=== PATIENT | male | born 1960 | race Caucasian/White ===

== ENCOUNTER 2019-01-04 08:00 | Outpatient (CLI) | payer OTHER | END 2019-01-04 23:59 | disposition home or self-care (01) | LOC: LAB.R 08:00 | PROVIDERS: ATTEND Emergency Medicine | DX: R19.7 Diarrhea, unspecified (principal) | CPT/HCPCS: 81599; 87045; 87046; 87177; 87209; 87329; 87493 ==

== ENCOUNTER 2019-01-04 12:24 | Emergency (ER) | payer OTHER ==
[2019-01-04 13:44] LABS: BASOPHILS % (AUTO) 0.3 %; EOSINOPHILS % (AUTO) 0.2 %; HGB - HEMOGLOBIN 16.3 g/dL (14.0-18.0); LYMPHOCYTES # (AUTO) 1.3 10^3/uL (1.5-3.5); LYMPHOCYTES % (AUTO) 14.6 %; MEAN CORPUSCULAR HEMOGLOBIN 30.4 pg (27.0-31.0); MEAN CORPUSCULAR HGB CONC 33.4 g/dL (32.0-36.0); MEAN CORPUSCULAR VOLUME 90.9 fL (80.0-94.0); MEAN PLATELET VOLUME 9.7 fL (7.4-11.4); MONOCYTES # (AUTO) 0.4 10^3/uL (0.0-1.0); MONOCYTES % (AUTO) 4.9 %; NEUTROPHILS # (AUTO) 7.2 10^3/uL (1.5-6.6); NEUTROPHILS % (AUTO) 79.2 %; PLT - PLATELET COUNT 194 10^3/uL (130-450); RED BLOOD COUNT 5.37 10^6/uL (4.70-6.10); WHITE BLOOD COUNT 9.1 x10^3/uL (4.8-10.8)
[2019-01-04 14:02] LABS: ALBUMIN 4.9 g/dL (3.2-5.5); ALBUMIN/GLOBULIN RATIO 1.8 (1.0-2.2); BILIRUBIN,TOTAL 0.6 mg/dL (0.2-1.0); CALCIUM 10.5 mg/dL (8.5-10.3); TOTAL PROTEIN 7.6 g/dL (6.7-8.2)
--- NOTE | 2019-01-04 15:01 | ED Physician Documentation ---
PD HPI ABD PAIN - Stated complaint Stated Complaint: MALE - Chief complaint Chief Complaint: Abd Pain - History obtained from History obtained from: Patient - History of Present Illness Timing - onset: Other (He got back from a trip to [place] about 5 or 6 days ago. Last night he suddenly developed bandlike mid abdominal pain across both sides as well as profuse diarrhea and sweats. That kind of got better and appeared away but then had one bloody bowel movement with a little bit of mucus in it. No sick contacts. No recent antibiotic use. No camping. No prior colonoscopy. He is scheduled for one in February.) Review of Systems Ten Systems: 10 systems reviewed and negative Constitutional: reports: Sweats. denies: Fever, Chills, Myalgias Cardiac: denies: Chest pain / pressure, Palpitations Respiratory: denies: Dyspnea, Cough PD PAST MEDICAL HISTORY - Past Medical History Past Medical History: No - Past Surgical History Past Surgical History: No - Present Medications Home Medications: Ambulatory Orders Medication Instructions Recorded Confirmed Azithromycin [Zithromax] 2 tab PO DAILY #6 tablet 01/04/19 - Allergies Allergies/Adverse Reactions: Allergies Allergy/AdvReac Type Severity Reaction Status Date / Time Penicillins Allergy Unknown Verified 01/04/19 12:35 Sulfa (Sulfonamide Allergy Unknown Verified 01/04/19 12:35 Antibiotics) - Social History Smoking Status: Current every day smoker PD ED PE NORMAL - Vitals Vital signs reviewed: Yes - General General: Alert and oriented X 3, No acute distress - HEENT HEENT: PERRL, EOMI - Neck Neck: Supple, no meningeal sign, No bony TTP - Cardiac Cardiac: RRR, No murmur - Respiratory Respiratory: No respiratory distress, Clear bilaterally - Abdomen Abdomen: Normal bowel sounds, Soft, Other (Mild left lower quadrant tenderness without surgical signs) - Back Back: No CVA TTP, No spinal TTP - Derm Derm: Normal color, Warm and dry - Extremities Extremities: No edema, No calf tenderness / cord - Neuro Neuro: Alert and oriented X 3, Normal speech Results - Vitals Vitals: Vital Signs - 24 hr 01/04/19 01/04/19 01/04/19 12:35 14:41 15:09 Temperature 36.6 C 36.8 C 37.1 C Heart Rate 93 87 87 Respiratory 18 18 16 Rate Blood Pressure 138/84 H 124/71 141/88 H O2 Saturation 99 98 97 01/04/19 01/04/19 16:10 16:26 Temperature 36.9 C 37 C Heart Rate 96 91 Respiratory 16 16 Rate Blood Pressure 127/80 112/79 O2 Saturation 95 96 Oxygen O2 Source Room air - Labs Labs: Laboratory Tests 01/04/19 01/04/19 01/04/19 13:13 13:13 15:21 WBC 9.1 RBC 5.37 Hgb 16.3 Hct 48.8 MCV 90.9 MCH 30.4 MCHC 33.4 RDW 12.0 Plt Count 194 MPV 9.7 Neut # (Auto) 7.2 H Lymph # (Auto) 1.3 L [place] # (Auto) 0.4 Eos # (Auto) 0.0 Baso # (Auto) 0.0 Absolute Nucleated RBC 0.00 Nucleated RBC % 0.0 Sodium 135 Potassium 4.1 Chloride 98 L Carbon Dioxide 28 Anion Gap 9.0 BUN 16 Creatinine 1.0 Estimated GFR (MDRD) 76 L Glucose 135 H Calcium 10.5 H Total Bilirubin 0.6 AST 20 ALT 42 Alkaline Phosphatase 68 Total Protein 7.6 Albumin 4.9 Globulin 2.7 Albumin/Globulin Ratio 1.8 Lipase 28 Urine Color YELLOW Urine Clarity CLEAR Urine pH 6.5 Ur Specific [place] 1.020 Urine Protein NEGATIVE Urine Glucose (UA) NEGATIVE Urine Ketones NEGATIVE Urine Occult Blood TRACE-LYSE Urine Nitrite NEGATIVE Urine Bilirubin NEGATIVE Urine Urobilinogen 0.2 (NORMAL) Ur Leukocyte Esterase NEGATIVE Ur Microscopic Review NOT INDICATED Urine Culture Comments NOT INDICATED PD MEDICAL DECISION MAKING - ED course ED course: This is a 58-year-old gentleman with signs and symptoms consistent with colitis. He is hemodynamically stable with fairly unremarkable blood work and normal CA T scan. He was unable to provide a stool sample here, was given collection materials to collect a stool sample at home and delivered back to the hospital as well as a lab requisition for same with orders for stool culture, ova and parasite, Giardia, and C. difficile. We will treat him with Zithromax in the meantime for presumed bacterial colitis with recent trip to [place]. Departure - Departure Disposition: 01 Home, Self Care Clinical Impression: Colitis Diarrhea Qualifiers: Diarrhea type: presumed infectious Qualified Code(s): R19.7 - Diarrhea, unspecified Condition: Good Record reviewed to determine appropriate education?: Yes Instructions: ED Diarrhea Bacterial Prescriptions: Azithromycin [Zithromax] 2 tab PO DAILY #6 tablet Comments: Return if not better in the next couple of days, anytime for new or worsening symptoms. Follow-up for the colonoscopy as scheduled in February. Discharge Date/Time: 01/04/19 16:36
[2019-01-04] MEDS ORDERED: IOVERSOL 320 100 ML VIAL IVP ONE ×2 (15:11→19:20)
[2019-01-04 15:41] LABS: BILIRUBIN,URINE NEGATIVE (NEGATIVE); GLUCOSE, URINE (UA) NEGATIVE (NEGATIVE); KETONES,URINE (UA) NEGATIVE (NEGATIVE); LEUKOCYTE ESTERASE, URINE NEGATIVE (NEGATIVE); NITRITE,URINE NEGATIVE (NEGATIVE); OCCULT BLOOD,URINE TRACE-LYSE (NEGATIVE); PH,URINE 6.5 PH (5.0-7.5); PROTEIN,URINE NEGATIVE (NEGATIVE); UROBILINOGEN,URINE 0.2 (NORMAL) E.U./dL (NORMAL)
[2019-01-04 15:43] LABS: CLARITY,URINE CLEAR (CLEAR)
--- NOTE | 2019-01-04 16:01 | CT Report ---
Reason: IV only, abd pain colitis Procedure Date: 01/04/2019 Accession Number: [id number] / [id number] Procedure: CT - Abdomen/Pelvis W CPT Code: Final Report FULL RESULT: EXAM: CT ABDOMEN AND PELVIS EXAM DATE: 01/04/2019 03:26 PM. CLINICAL HISTORY: IV only, abd pain colitis. COMPARISONS: None. TECHNIQUE: Routine helical CT imaging was performed through the abdomen and pelvis. IV contrast: OPTI 320 90ML. Enteric contrast: No. Reconstructions: Coronal and sagittal. In accordance with CT protocol optimization, one or more of the following dose reduction techniques were utilized for this exam: automated exposure control, adjustment of mA and/or KV based on patient size, or use of iterative reconstructive technique. FINDINGS: Lung Bases: Unremarkable. Liver: No lobular contour changes or masses. Gallbladder/Bile Ducts: Unremarkable. Spleen: Normal. Pancreas: Normal. Adrenal Glands: Normal. Kidneys: No stones, masses or hydronephrosis. Peritoneal Cavity/Bowel: Normal. No free fluid, free air or adenopathy. No masses or acute inflammatory process. The appendix is well visualized and normal. Pelvic Organs: Normal. The bladder and visualized pelvic organs are within normal limits. Vasculature: No aneurysms or other significant abnormality. Bones: No significant abnormality. Other: No hernia seen. IMPRESSION: Negative abdomen and pelvis CT. RADIA
[2019-01-04 16:28] VITALS: BP 112/79
== END 2019-01-04 16:36 | disposition home or self-care (01) ==
LOC: ED 12:24
DX: K52.9 Noninfective gastroenteritis and colitis, unspecified (principal); F17.200 Nicotine dependence, unspecified, uncomplicated
CPT/HCPCS: 36415; 74177; 80053; 81003; 83690; 85025; 99284; Q9967; 81001; 87015; 87086; 87272; 87329

== ENCOUNTER 2019-10-19 16:47 | Outpatient (CLI) | payer OTHER ==
--- NOTE | 2019-10-19 17:12 | XRAY Report ---
PROCEDURE: Knee 3 View RT INDICATIONS: INTERNAL DERANGEMENT OF RT KNEEE TECHNIQUE: 3 views of the right knee(s) were acquired. COMPARISON: None. FINDINGS: Bones: No fractures or dislocations. No suspicious bony lesions. Soft tissues: Moderate suprapatellar joint effusion is seen. No suspicious soft tissue calcifications . IMPRESSION: No right knee fracture or dislocation. Moderate joint effusion. Consider MRI of right kn ee for further evaluation of internal derangement if clinically indicated. Reviewed by: Antonio Castro MD on 10/19/2019 5:11 PM PDT Approved by: Antonio Castro MD on 10/19/2019 5:11 PM PDT Station ID: [id number]
== END 2019-10-19 16:48 | disposition home or self-care (01) ==
LOC: DI 16:47
PROVIDERS: ATTEND Family Medicine
DX: M25.461 Effusion, right knee (principal)

== ENCOUNTER 2020-02-02 08:00 | Outpatient (CLI) | payer OTHER | END 2020-02-02 08:01 | disposition home or self-care (01) | LOC: LAB.N 08:00 | PROVIDERS: ATTEND Physician Assistant Medical | DX: R07.0 Pain in throat (principal); Z20.828 Contact with and (suspected) exposure to other viral communicable diseases ==

== ENCOUNTER 2020-03-08 08:00 | Outpatient (CLI) | payer OTHER ==
[2020-03-08 11:52] LABS: BASOPHILS % (AUTO) 0.6 %; EOSINOPHILS % (AUTO) 0.6 %; HGB - HEMOGLOBIN 16.2 g/dL (14.0-18.0); LYMPHOCYTES # (AUTO) 2.6 10^3/uL (1.5-3.5); LYMPHOCYTES % (AUTO) 41.4 %; MEAN CORPUSCULAR HEMOGLOBIN 31.5 pg (27.0-31.0); MEAN CORPUSCULAR HGB CONC 33.9 g/dL (32.0-36.0); MEAN PLATELET VOLUME 10.3 fL (7.4-11.4); MONOCYTES # (AUTO) 0.4 10^3/uL (0.0-1.0); MONOCYTES % (AUTO) 6.1 %; NEUTROPHILS # (AUTO) 3.2 10^3/uL (1.5-6.6); NEUTROPHILS % (AUTO) 50.8 %; PLT - PLATELET COUNT 204 10^3/uL (130-450); RED BLOOD COUNT 5.14 10^6/uL (4.70-6.10); RED CELL DISTRIBUTION WIDTH 11.6 % (12.0-15.0); WHITE BLOOD COUNT 6.4 x10^3/uL (4.8-10.8)
[2020-03-08 12:16] LABS: ALBUMIN 4.6 g/dL (3.2-5.5); ALKALINE PHOSPHATASE 63 IU/L (42-121); ALT ALANINE AMINOTRANSFERASE 27 IU/L (10-60); AST ASPARTATE AMINOTRANSFERASE 20 IU/L (10-42); BILIRUBIN,TOTAL 0.5 mg/dL (0.2-1.0); BUN - BLOOD UREA NITROGEN 13 mg/dL (6-20); CALCIUM 10.7 mg/dL (8.5-10.3); CARBON DIOXIDE - CO2 29 mmol/L (21-32); CHLORIDE 99 mmol/L (101-111); CHOL/HDL RATIO 4.5 (<5.0); CHOLESTEROL 215 mg/dL; CREATININE 0.8 mg/dL (0.6-1.2); GLUCOSE 107 mg/dL (70-100); HDL CHOLESTEROL 48 mg/dL; LDL CHOLESTEROL,CALCULATED 145 mg/dL; TOTAL PROTEIN 6.9 g/dL (6.7-8.2); VLDL CHOLESTEROL 22 mg/dL
== END 2020-03-08 23:59 | disposition home or self-care (01) ==
LOC: LAB.WCP 08:00
PROVIDERS: ATTEND Family Medicine
DX: E78.00 Pure hypercholesterolemia, unspecified (principal); M15.9 Polyosteoarthritis, unspecified; G43.109 Migraine with aura, not intractable, without status migrainosus; Z12.5 Encounter for screening for malignant neoplasm of prostate
CPT/HCPCS: 36415; 80053; 80061; 83721; 84153; 84443; 85025

== ENCOUNTER 2020-04-18 10:00 | Day surgery (SDC) | payer OTHER ==
[2020-04-18] MEDS ORDERED: LACTATED RINGERS 1,000 ML IV ONE ×2 (10:21→12:44)
[2020-04-18] MEDS ORDERED: MIDAZOLAM 2 MG/2 ML VIAL ONE ×2 (12:23→12:26)
[2020-04-18] MEDS ORDERED: fentaNYL 250 MCG/5 ML VIAL ONE (12:23)
[2020-04-18 13:16] VITALS: BP 96/71
== END 2020-04-18 10:01 | disposition home or self-care (01) ==
LOC: SDS 10:00
PROVIDERS: ATTEND Surgery
DX: Z12.11 Encounter for screening for malignant neoplasm of colon (principal); K64.8 Other hemorrhoids; F17.210 Nicotine dependence, cigarettes, uncomplicated
CPT/HCPCS: 45378; J3010; J7120

== ENCOUNTER 2020-08-17 20:29 | Emergency (ER) | payer OTHER ==
[2020-08-17] MEDS ORDERED: SUMAtriptan 6 MG/0.5 ML VIAL SUBQ STA (21:14)
--- NOTE | 2020-08-17 21:15 | ED Physician Documentation ---
PD HPI OPHTHO - Stated complaint Stated Complaint: LT EAR PX - Chief complaint Chief Complaint: Heent - History obtained from History obtained from: Patient - Additional information Additional information: 59-year-old gentleman, generally very healthy. Got back from [place] 3 days ago. He did get water in his ear while there and he had some ear fullness. More pain on the left side of the head tonight associated with what he describes as [place] train tracks in his vision, both eyes. Then he developed slight confusion. He just did not feel well with it. There is no fever or neck stiffness. Review of Systems Ten Systems: 10 systems reviewed and negative Constitutional: denies: Fever, Chills Eyes: reports: Photophobia. denies: Loss of vision, Decreased vision Ears: reports: Reviewed and negative Nose: reports: Reviewed and negative PD PAST MEDICAL HISTORY - Past Medical History Past Medical History: Yes Cardiovascular: None Respiratory: None Neuro: None Endocrine/Autoimmune: None GI: GERD : None HEENT: None Psych: None Musculoskeletal: None, Osteoarthritis Derm: Rosacea - Past Surgical History Past Surgical History: No - Present Medications Home Medications: Ambulatory Orders Medication Instructions Recorded Confirmed No Known Home Medications 08/17/20 08/17/20 - Allergies Allergies/Adverse Reactions: Allergies Allergy/AdvReac Type Severity Reaction Status Date / Time Penicillins Allergy Unknown Verified 08/17/20 20:40 Sulfa (Sulfonamide Allergy Unknown Verified 08/17/20 20:40 Antibiotics) - Social History Does the pt smoke?: Yes Smoking Status: Current every day smoker Does the pt drink ETOH?: Yes Does the pt have substance abuse?: No - Immunizations Immunizations are current?: No - POLST Patient has POLST: No PD ED PE NORMAL - Vitals Vital signs reviewed: Yes - General General: Alert and oriented X 3, No acute distress - HEENT HEENT: PERRL, EOMI, Other (Both ear canals have some cerumen, but nothing occlusive. Visualized portions of the TMs are normal. He does have moderate dentition but no obviously tender teeth. Symmetric face and normal cranial nerves.) - Neck Neck: Supple, no meningeal sign, No bony TTP - Cardiac Cardiac: RRR, No murmur - Respiratory Respiratory: No respiratory distress, Clear bilaterally - Neuro Neuro: Alert and oriented X 3, No motor deficit, No sensory deficit, Normal speech Eye Opening: Spontaneous Motor: Obeys Commands Verbal: Oriented GCS Score: 15 Results - Vitals Vitals: Vital Signs - 24 hr 08/17/20 08/17/20 20:35 20:39 Temperature 36.5 C 36.5 C Heart Rate 84 84 Respiratory 16 16 Rate Blood Pressure 115/79 115/79 O2 Saturation 97 97 Oxygen O2 Source Room air PD MEDICAL DECISION MAKING - ED course ED course: 59 yo man presents with left-sided headache which he felt was his ear but the exam looks pretty normal there, is also associate with mild confusion and [place] train tracks in his vision which based on his description is probably almost pathognomonic for migrainous etiology. After the administration of subcutaneous Imitrex he had the pain near the ear resolved, but it felt more in the sinuses, but his confusion resolved and the general ill feeling resolved. Differential diagnosis also includes early shingles prerash, and he was advised to watch out for this. No evidence of infectious etiology or other concerning etiology. CT imaging was offered but he declined preferring to monitor his symptoms at home. Departure - Departure Disposition: 01 Home, Self Care Clinical Impression: Migraine Qualifiers: Migraine type: with aura Status migrainosus presence: with status migrainosus Intractability: not intractable Qualified Code(s): G43.101 - Migraine with aura, not intractable, with status migrainosus Condition: Good Record reviewed to determine appropriate education?: Yes Instructions: ED Cephalgia Unspecified Comments: Return tomorrow if any of your symptoms are persistent. Otherwise as discussed this seems like a migrainous etiology. Also return if you develop the shingles rash that we discussed. Follow-up with your physician regardless.
[2020-08-17 22:26] VITALS: BP 116/80
== END 2020-08-17 22:24 | disposition home or self-care (01) ==
LOC: ED 20:29
DX: G43.101 Migraine with aura, not intractable, with status migrainosus (principal); F17.200 Nicotine dependence, unspecified, uncomplicated
CPT/HCPCS: 99283; 99284

== ENCOUNTER 2021-06-29 23:48 | Outpatient (CLI) | payer OTHER | END 2021-06-29 23:49 | disposition critical access hospital (66) | LOC: EMS 23:48 | DX: I95.9 Hypotension, unspecified (principal); R55 Syncope and collapse | CPT/HCPCS: A0425; A0427 ==

== ENCOUNTER 2021-06-29 23:55 | Emergency (ER) | payer OTHER ==
[2021-06-30 00:24] LABS: BASOPHILS % (AUTO) 0.6 %; EOSINOPHILS # (AUTO) 0.1 10^3/uL (0.0-0.7); EOSINOPHILS % (AUTO) 1.3 %; HCT - HEMATOCRIT 37.3 % (42.0-52.0); HGB - HEMOGLOBIN 12.8 g/dL (14.0-18.0); LYMPHOCYTES # (AUTO) 3.7 10^3/uL (1.5-3.5); LYMPHOCYTES % (AUTO) 51.7 %; MEAN CORPUSCULAR HEMOGLOBIN 31.5 pg (27.0-31.0); MEAN CORPUSCULAR HGB CONC 34.3 g/dL (32.0-36.0); MEAN CORPUSCULAR VOLUME 91.9 fL (80.0-94.0); MEAN PLATELET VOLUME 9.5 fL (7.4-11.4); MONOCYTES # (AUTO) 0.5 10^3/uL (0.0-1.0); MONOCYTES % (AUTO) 6.3 %; NEUTROPHILS # (AUTO) 2.9 10^3/uL (1.5-6.6); NEUTROPHILS % (AUTO) 39.8 %; PLT - PLATELET COUNT 168 10^3/uL (130-450); RED BLOOD COUNT 4.06 10^6/uL (4.70-6.10); RED CELL DISTRIBUTION WIDTH 11.8 % (12.0-15.0); WHITE BLOOD COUNT 7.1 x10^3/uL (4.8-10.8)
[2021-06-30 00:39] LABS: ALBUMIN 3.7 g/dL (3.2-5.5); ALBUMIN/GLOBULIN RATIO 1.8 (1.0-2.2); BILIRUBIN,TOTAL 0.4 mg/dL (0.2-1.0); CALCIUM 9.8 mg/dL (8.5-10.3); CREATININE 0.8 mg/dL (0.6-1.2); TOTAL PROTEIN 5.8 g/dL (6.7-8.2)
--- NOTE | 2021-06-30 01:31 | ED Physician Documentation ---
History of Present Illness - Stated complaint Stated Complaint: NEAR SYNCOPE/HYPOTENSIVE - Chief complaint Chief Complaint: Neuro - History obtained from History obtained from: Patient, EMS - History of Present Illness Timing: Enter time (23:00), Today Pain level max: 0 Pain level now: 0 Improved by: improved en route as IV NS was infused Worsened by: standing, ambulating - Additonal information Additional information: BIBA for near-syncope. Patient says that at approximately 11 PM tonight while at home, seated and watching TV, he had rapid onset of cold sweats (per patient), lightheadedness, diplopia, things went dark, darden, and felt like I was going to pass out. These symptoms started while he was seated, exacerbated with standing. EMS arrived to find patient pale and with SBP in 60s but NSR on monitor, FSBS 103. He was given IV fluids en route, total of 400cc NS by the time of ED arrival, and SBP improved to 80s and then 100s by the time of ED arrival; patient symptoms improved in proportion to the improvement in his blood pressure readings and he arrives asymptomatic. He denies h/o similar symptoms. He says he did not have any chest pain/tightness/squeezing/pressure, denies dyspnea, denies headache. Review of Systems Constitutional: reports: Sweats. denies: Fatigue Eyes: reports: Decreased vision (describes double vision and subsequent vision becoming darden and dark) Cardiac: reports: Reviewed and negative Respiratory: reports: Reviewed and negative GI: reports: Reviewed and negative : denies: Incontinent Musculoskeletal: reports: Reviewed and negative Neurologic: reports: Generalized weakness (resolved), Near syncope. denies: Focal weakness, Numbness, Headache, LOC PD PAST MEDICAL HISTORY - Past Medical History Past Medical History: Yes Cardiovascular: None Respiratory: None Neuro: None Endocrine/Autoimmune: None GI: GERD : None HEENT: None Psych: None Musculoskeletal: None, Osteoarthritis Derm: Rosacea - Past Surgical History Past Surgical History: No - Present Medications Home Medications: Ambulatory Orders Medication Instructions Recorded Confirmed No Known Home Medications 08/17/20 08/17/20 - Allergies Allergies/Adverse Reactions: Allergies Allergy/AdvReac Type Severity Reaction Status Date / Time Penicillins Allergy Unknown Verified 06/30/21 00:03 Sulfa (Sulfonamide Allergy Unknown Verified 06/30/21 00:03 Antibiotics) - Social History Does the pt smoke?: Yes Smoking Status: Current every day smoker Does the pt drink ETOH?: Yes Does the pt have substance abuse?: No - Immunizations Immunizations are current?: No - POLST Patient has POLST: No PD ED PE NORMAL - Vitals Vital signs reviewed: Yes - General General: Alert and oriented X 3, No acute distress, Well developed/nourished - HEENT HEENT: PERRL, EOMI, Moist mucous membranes - Neck Neck: Supple, no meningeal sign - Cardiac Cardiac: RRR, No murmur, No gallop, No rub - Respiratory Respiratory: No respiratory distress, Clear bilaterally - Abdomen Abdomen: Soft, Non tender - Derm Derm: Normal color, Warm and dry - Extremities Extremities: No edema - Neuro Neuro: Alert and oriented X 3, liquid fertilizer servicer 2-12 intact, No motor deficit, No sensory de ficit, Normal speech Eye Opening: Spontaneous Motor: Obeys Commands Verbal: Oriented GCS Score: 15 Results - Vitals Vitals: Oxygen O2 Source Room air - EKG (time done) No standard instances Rate: Rate (enter#) (73) Rhythm: NSR [place]: Normal Intervals: Prolonged [place] QRS: Normal Ischemia: Normal ST segments - Labs Labs: Laboratory Tests 06/30/21 06/30/21 06/30/21 00:10 00:10 00:10 WBC 7.1 RBC 4.06 L Hgb 12.8 L Hct 37.3 L MCV 91.9 MCH 31.5 H MCHC 34.3 RDW 11.8 L Plt Count 168 MPV 9.5 Neut # (Auto) 2.9 Lymph # (Auto) 3.7 H [place] # (Auto) 0.5 Eos # (Auto) 0.1 Baso # (Auto) 0.0 Absolute Nucleated RBC 0.00 Nucleated RBC % 0.0 Sodium 138 Potassium 4.0 Chloride 104 Carbon Dioxide 25 Anion Gap 9.0 BUN 17 Creatinine 0.8 Estimated GFR (MDRD) 98 Glucose 110 H Calcium 9.8 Total Bilirubin 0.4 AST 17 ALT 16 Alkaline Phosphatase 52 Troponin I High Sens < 2.3 L Total Protein 5.8 L Albumin 3.7 Globulin 2.1 Albumin/Globulin Ratio 1.8 Lipase 32 - Rads (name of study) chest xray Radiology: Prelim report reviewed, See rad report PD MEDICAL DECISION MAKING - ED course Complexity details: reviewed results, re-evaluated patient, considered differential, d/w patient ED course: NAD with normal vital signs during ED stay. No concerning findings on blood tests including normal hs-cTn. Unremarkable CXR and EKG is NSR without contributory or concerning findings (prolonged FL but otherwise normal). He is given IV fluids in ED for a total of one liter NS including the 400cc NS received en route by EMS. Results d/w patient. He is comfortable with d/c home. He feels that dehydration was likely cause as he was doing a lot of yard work today and he does not think he was hydrating accordingly. D/C is appropriate at this time, but I d/w patient that it is concerning to me that his symptom onset was while seated as well as the rapidity of onset. Dehydration would not typically cause such rapid onset and progression of symptoms, particularly while seated. Vaso-vagal etiology would be unusual to occur while at rest and seated. 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 Departure - Departure Disposition: 01 Home, Self Care Clinical Impression: Near syncope Condition: Good Instructions: ED Near Syncope Unkn Comments: The results of your tests do not have any concerning findings. The cause of your symptoms is not apparent at this time, but, as we discussed, the medics did note readings of very low blood pressure on initial readings. This improved with the IV fluids. You should follow up with your primary care provider within the next few weeks for reevaluation. Discharge Date/Time: 06/30/21 03:47
[2021-06-30 03:46] VITALS: BP 107/84
--- NOTE | 2021-06-30 09:37 | XRAY Report ---
PROCEDURE: Chest 2 View X-Ray INDICATIONS: near syncope TECHNIQUE: 2 view(s) of the chest. COMPARISON: None. FINDINGS: Surgical changes and devices: None. Lungs and pleura: No pleural effusions or pneumothorax. Mild peribronchial cuffing noted centrally p articularly on the right. No focal infiltrate. Mediastinum: Mediastinal contours are normal. Heart size is normal. Bones and chest wall: No suspicious bony abnormalities. Soft tissues appear unremarkable. IMPRESSION: Mild central peribronchial cuffing reflect bronchitis in the proper clinical setting. Note: Final report is concordant with preliminary report provided by [employer] Reviewed by: Yury Padilla MD on 06/30/2021 8:36 AM STEPHANIE Approved by: Yury Padilla MD on 06/30/2021 8:36 AM AKWILL Station ID: [id number]
== END 2021-06-30 03:47 | disposition home or self-care (01) ==
LOC: EDUNIT# → ED 23:55
DX: R55 Syncope and collapse (principal); F17.200 Nicotine dependence, unspecified, uncomplicated
CPT/HCPCS: 36415; 80053; 83690; 84484; 85025; 93005; 99283; 99284